=== PATIENT | male | born 1940 | race Caucasian/White ===

== ENCOUNTER 2021-11-21 06:25 | Outpatient (CLI) | payer MEDICARE, BC, SELFPAY | END 2021-11-21 06:26 | disposition home or self-care (01) | LOC: AMB 12-04 16:11 | PROVIDERS: Visit Provider Family Medicine | DX: M79.671 Pain in right foot (principal) | CPT/HCPCS: A0425; A0427 ==

== ENCOUNTER 2021-11-21 07:14 | Emergency (ER) | payer MEDICARE, BC, SELFPAY ==
[2021-11-21 07:16] VITALS: BP 148/68; PULSE 56; RESP 18; TEMP 35.9; O2SAT 97; BMI 32.4
--- NOTE | 2021-11-21 07:27 | CRLHL7_ITS ---
For Patients: As a result of the Century Cures Act, medical imaging exams and procedure reports are released immediately into your electronic medical record. You may view this report before your referring provider. If you have questions, please contact your health care provider. Indication: Right ankle pain and swelling Technique: Right ankle 3 views Comparison: None Findings: Vascular calcifications. Joint effusion. Small plantar calcaneal spur. Intact cortices. No acute fracture. Impression: Soft tissue swelling and joint effusion. No fracture. Dictated by Douglas Arce MD @ 11/21/2021 8:15:01 AM (Electronically Signed)
--- NOTE | 2021-11-21 07:28 | ED_ITS ---
HPI - General Adult General Time Seen by Provider: 07:28 <Tadeo Nicole MD - Last Filed: 11/21/21 07:30> Date Seen: 11/21/21 <Tadeo Nicole MD - Last Filed: 11/21/21 07:30> Chief complaint: Extremity Pain/Injury, Lower <Tadeo Nicole MD - Last Filed: 11/21/21 07:30> Stated complaint: Foot Pain <Tadeo Nicole MD - Last Filed: 11/21/21 07:30> Time Seen by Provider: 11/21/21 07:24 <Tadeo Nicole MD - Last Filed: 11/21/21 07:30> Source: patient <Tadeo Nicole MD - Last Filed: 11/21/21 07:30> Mode of arrival: EMS <Tadeo Nicole MD - Last Filed: 11/21/21 07:30> Limitations: no limitations <Tadeo Nicole MD - Last Filed: 11/21/21 07:30> History of Present Illness HPI narrative: 81-year-old male who comes in today with right ankle pain. Started yesterday and, no injury, progressively worse today. Was taking aspirin for this yesterday. Denies any fall or injury. Denies fever, chills, nausea, vomiting, diarrhea. Pain is worse with ambulation but constant otherwise. <Tadeo Nicole MD - Last Filed: 11/21/21 07:30> Related Data Home medications: Home Medications Medication Instructions Recorded Confirmed amlodipine 10 mg tablet mg 11/21/21 betamethasone dipropionate 0.05 % applic topical 11/21/21 topical cream calcipotriene topical 11/21/21 clobestasol 11/21/21 gemfibrozil 600 mg tablet mg 11/21/21 hydrocortisone valerate topical 11/21/21 ketoconazole 2 % topical cream applic topical 11/21/21 lisinopril 20 tab 11/21/21 mg-hydrochlorothiazide 25 mg tablet simvastatin 40 mg tablet mg 11/21/21 Previous Rx's Medication Instructions Recorded indomethacin 50 mg capsule 50 mg PO BID PRN #10 caps 11/21/21 prednisone 20 mg tablet 20 mg PO DIRECTED 8 days #18 11/21/21 tabs <Tadeo Nicole MD - Last Filed: 11/21/21 07:30> Allergies/adverse reactions: Allergies Allergy/AdvReac Type Severity Reaction Status Date / Time No Known Drug Allergies Allergy Verified 11/21/21 07:22 <Tadeo Nicole MD - Last Filed: 11/21/21 07:30> Review of Systems Status of ROS: Reports: 10 or more systems reviewed and unremarkable except as noted in History and below <Tadeo Nicole MD - Last Filed: 11/21/21 07:30> [facility] Medical History: Medical History (Updated 11/21/21 @ 08:27 by Verónica Gómez MD) Hypertension Psoriasis <Tadeo Nicole MD - Last Filed: 11/21/21 07:30> Surgical History: Surgical History (Updated 11/21/21 @ 07:27 by Patricia George RN) H/O shoulder replacement <Tadeo Nicole MD - Last Filed: 11/21/21 07:30> Social History: Social History Smoking Status: Former smoker How often do you have a drink containing alcohol: monthly or less AUDIT-C Alcohol total score: 1 Non-prescribed substance use: denies use <Tadeo Nicole MD - Last Filed: 11/21/21 07:30> Exam Narrative: Exam Narrative: General: Well-developed and well-nourished, no acute distress Head: Atraumatic and normocephalic Eyes: Pupils are equal reactive, extraocular motions intact, conjunctiva clear ENT: External nose and ears are normal, posterior pharynx without erythema or exudate Neck: No midline cervical tenderness, full spontaneous range of motion the neck, trachea midline, no adenopathy Heart: Regular rate and rhythm no murmurs or thrills Lungs: Clear to auscultation bilaterally without wheezes or crackles Abdomen: Soft, nontender, nondistended with active bowel sounds Musculoskeletal: Mild swelling and tenderness of the right lateral hindfoot in little bit medially. No definite joint effusion, pain with passive movement of the joint. Neurologic: Awake, alert, and oriented x3, no gross focal neurologic deficits, cranial nerves intact as tested Psych: Mood and affect are appropriate Skin: No rashes <Tadeo Nicole MD - Last Filed: 11/21/21 07:30> Const: Vital Signs, click to edit/add: Vital Signs - 24 hr 11/21/21 07:16 Temperature 96.7 F L Pulse Rate [Pulse Oximeter] 56 L Respiratory Rate 18 Blood Pressure [Le ft Upper Arm] 148/68 H Pulse Oximetry 97 Oxygen Delivery Me thod Room Air <Tadeo Nicole MD - Last Filed: 11/21/21 07:30> Vital Signs, click to edit/add: Vital Signs - 24 hr 11/21/21 07:16 Temperature 96.7 F L Pulse Rate [Pulse Oximeter] 56 L Respiratory Rate 18 Blood Pressure [Le ft Upper Arm] 148/68 H Pulse Oximetry 97 Oxygen Delivery Me thod Room Air <Verónica Gómez MD - Last Filed: 11/21/21 08:33> Course Course Hospital Course: Patient seen examined, prior records reviewed. Differential diagnosis includes but not limited to cellulitis, strain, sprain, gout, crystal arthropathy, septic arthritis. Patient presents with right ankle pain starting yesterday and worsening today. No fevers. On exam, the right ankle is exquisitely tender with mild swelling, no definite effusion. Labs and x-ray ordered. <Tadeo Nicole MD - Last Filed: 11/21/21 07:30> Reevaluation(s) Reevaluation #1: Sign out to oncoming provider <Tadeo Nicole MD - Last Filed: 11/21/21 07:30> Time: 08:00 <Tadeo Nicole MD - Last Filed: 11/21/21 07:30> Vital Signs Vital signs: Initial Vital Signs Temperature 96.7 F L 11/21/21 07:16 Temperature Source Temporal Artery Scan 11/21/21 07:16 Pulse Rate 56 L 11/21/21 07:16 Respiratory Rate 18 11/21/21 07:16 Blood Pressure 148/68 H 11/21/21 07:16 Blood Pressure Mean 94 11/21/21 07:16 Blood Pressure Position Supine 11/21/21 07:16 Pulse Oximetry 97 11/21/21 07:16 Oxygen Delivery Method 11/21/21 07:16 Vital Signs Temperature 96.7 F L 11/21/21 07:16 Pulse Rate 56 L 11/21/21 07:16 Respiratory Rate 18 11/21/21 07:16 Blood Pressure 148/68 H 11/21/21 07:16 Pulse Oximetry 97 11/21/21 07:16 Oxygen Delivery Method 11/21/21 07:16 Temperature 96.7 F L 11/21/21 07:16 Pulse Rate 56 L 11/21/21 07:16 Respiratory Rate 18 11/21/21 07:16 Blood Pressure 148/68 H 11/21/21 07:16 Pulse Oximetry 97 11/21/21 07:16 Oxygen Delivery Method 11/21/21 07:16 <Tadeo Nicole MD - Last Filed: 11/21/21 07:30> Initial Vital Signs Temperature 96.7 F L 11/21/21 07:16 Temperature Source Temporal Artery Scan 11/21/21 07:16 Pulse Rate 56 L 11/21/21 07:16 Respiratory Rate 18 11/21/21 07:16 Blood Pressure 148/68 H 11/21/21 07:16 Blood Pressure Mean 94 11/21/21 07:16 Blood Pressure Position Supine 11/21/21 07:16 Pulse Oximetry 97 11/21/21 07:16 Oxygen Delivery Method 11/21/21 07:16 Vital Signs Temperature 96.7 F L 11/21/21 07:16 Pulse Rate 56 L 11/21/21 07:16 Respiratory Rate 18 11/21/21 07:16 Blood Pressure 148/68 H 11/21/21 07:16 Pulse Oximetry 97 11/21/21 07:16 Oxygen Delivery Method 11/21/21 07:16 Temperature 96.7 F L 11/21/21 07:16 Pulse Rate 56 L 11/21/21 07:16 Respiratory Rate 18 11/21/21 07:16 Blood Pressure 148/68 H 11/21/21 07:16 Pulse Oximetry 97 11/21/21 07:16 Oxygen Delivery Method 11/21/21 07:16 <Verónica Gómez MD - Last Filed: 11/21/21 08:33> Medical Decision Making MDM Narrative Medical decision making narrative: Upon further conversation, patient tells me that he has had gout in the past and the other ankle and felt very similar to this. His labs showed elevated CRP otherwise labs are unremarkable. I did examine the joint myself, there is minimal erythema, no induration, he does have swelling and tenderness with movement of the joint. His x-ray does show a joint effusion. Findings appear to be more consistent with gout than with cellulitis at this point. I do not think he has a septic joint given the lack of a heat and erythema. At this point we will treat for gout. Patient is encouraged to follow up within the next 48 hours in certainly return to the ER if things are getting worse instead of better. Patient was agreeable had no other questions. <Verónica Gómez MD - Last Filed: 11/21/21 08:33> Medical Records Medical records reviewed: Yes I reviewed the patient's medical records <Tadeo Nicole MD - Last Filed: 11/21/21 07:30> Lab Data Lab results reviewed: Yes I reviewed the patient's lab results <Tadeo Nicole MD - Last Filed: 11/21/21 07:30> Yes I reviewed the patient's lab results <Verónica Gómez MD - Last Filed: 11/21/21 08:33> Labs: Lab Results 11/21/21 11/21/21 Range/Units 07:35 07:35 WBC 11.57 H (4.50-11.00) K/uL RBC 4.27 L (4.30-5.90) m/uL Hgb 13.3 L (13.5-17.5) gm/dL Hct 39.3 (37.0-53.0) % MCV 92 (80-100) fL MCH 31 (26-34) pg MCHC 34 (32-36) gm/dL RDW Coeff of Judy 13.1 (11.5-15.5) % Plt Count 272 (140-440) K/uL Neut % (Auto) 80.8 H (42.0-72.0) % Lymph % (Auto) 6.8 L (20-44) % [place] % (Auto) 9.4 (0.0-11.0) % Eos % (Auto) 2.4 (0.0-7.0) % Baso % (Auto) 0.4 (0.0-3.0) % Neut # (Auto) 9.30 H (1.7-7.0) K/uL Lymph # (Auto) 0.80 L (0.90-2.90) K/uL [place] # (Auto) 1.10 H (0.00-0.90) K/UL Eos # (Auto) 0.30 (0.00-0.50) K/uL Baso # (Auto) 0.00 (0.00-0.30) K/uL Abs Immat Gran (auto) 0.02 (0.00-0.30) K/uL Sodium 139 (135-149) mmol/L Potassium 3.9 (3.6-5.1) mmol/L Chloride 105 (96-114) mmol/L Carbon Dioxide 24 (20-32) mmol/L BUN 28 (7-30) mg/dL Creatinine 1.3 (0.5-1.5) mg/dL Estimated Creat Clear 40.08 Estimated GFR 56 ml/min Glucose 121 H (60-115) mg/dL Calcium 9.2 (8.4-10.6) mg/dL C-Reactive Protein 3.1 H (0.5-1.0) mg/dL <Tadeo Nicole MD - Last Filed: 11/21/21 07:30> Lab Results 11/21/21 11/21/21 Range/Units 07:35 07:35 WBC 11.57 H (4.50-11.00) K/uL RBC 4.27 L (4.30-5.90) m/uL Hgb 13.3 L (13.5-17.5) gm/dL Hct 39.3 (37.0-53.0) % MCV 92 (80-100) fL MCH 31 (26-34) pg MCHC 34 (32-36) gm/dL RDW Coeff of Judy 13.1 (11.5-15.5) % Plt Count 272 (140-440) K/uL Neut % (Auto) 80.8 H (42.0-72.0) % Lymph % (Auto) 6.8 L (20-44) % [place] % (Auto) 9.4 (0.0-11.0) % Eos % (Auto) 2.4 (0.0-7.0) % Baso % (Auto) 0.4 (0.0-3.0) % Neut # (Auto) 9.30 H (1.7-7.0) K/uL Lymph # (Auto) 0.80 L (0.90-2.90) K/uL [place] # (Auto) 1.10 H (0.00-0.90) K/UL Eos # (Auto) 0.30 (0.00-0.50) K/uL Baso # (Auto) 0.00 (0.00-0.30) K/uL Abs Immat Gran (auto) 0.02 (0.00-0.30) K/uL Sodium 139 (135-149) mmol/L Potassium 3.9 (3.6-5.1) mmol/L Chloride 105 (96-114) mmol/L Carbon Dioxide 24 (20-32) mmol/L BUN 28 (7-30) mg/dL Creatinine 1.3 (0.5-1.5) mg/dL Estimated Creat Clear 40.08 Estimated GFR 56 ml/min Glucose 121 H (60-115) mg/dL Calcium 9.2 (8.4-10.6) mg/dL C-Reactive Protein 3.1 H (0.5-1.0) mg/dL <Verónica Gómez MD - Last Filed: 11/21/21 08:33> Imaging Data Ankle x-ray: Radiologist's impression: Findings: Vascular calcifications. Joint effusion. Small plantar calcaneal spur. Intact cortices. No acute fracture. Impression: Soft tissue swelling and joint effusion. No fracture. <Verónica Gómez MD - Last Filed: 11/21/21 08:33> Discharge Plan Discharge Clinical Impression: Gout <Tadeo Nicole MD - Last Filed: 11/21/21 07:30> Patient Disposition: Home, Self-Care <Tadeo Nicole MD - Last Filed: 11/21/21 07:30> Condition: Stable <Tadeo Nicole MD - Last Filed: 11/21/21 07:30> Additional Instructions: Take the steroid (prednisone) as instructed. Indomethacin is used for pain management, use only as needed for there is an increased risk of bleeding from your stomach with prolonged use of this medication. You can also use Tylenol for pain management. Elevate the leg as much as you can throughout the day. Follow-up with your primary care provider in the next 48 hours. Return to the ER if you are getting worse instead of better despite treatment. Return to the ER if you develop fever, vomiting or weakness. <Tadeo Nicole MD - Last Filed: 11/21/21 07:30> Prescriptions: New prednisone 20 mg tablet 20 mg PO DIRECTED 8 Days Qty: 18 0RF Rx Instructions: Take 3 tablets on days 1 to 3, take 2 tablets on days 4-6, take 1 tablet on days 6-8. indomethacin 50 mg capsule 50 mg PO BID PRNQty: 10 0RF Rx Instructions: administer with food or milk No Action simvastatin 40 mg tablet amlodipine 10 mg tablet gemfibrozil 600 mg tablet betamethasone dipropionate 0.05 % cream TOPICAL Label Comments: APPLY TOPICALLY TO THE AFFECTED AREA TWICE DAILY lisinopril-hydrochlorothiazide 20-25 mg tablet Label Comments: TAKE 1 TABLET BY MOUTH TWICE DAILY ketoconazole 2 % cream TOPICAL calcipotriene topical clobestasol hydrocortisone valerate topical <Tadeo Nicole MD - Last Filed: 11/21/21 07:30> Stand Alone [facility] <Tadeo Nicole MD - Last Filed: 11/21/21 07:30>
[2021-11-21 07:45] LABS: Basophils Percent Auto 0.4 % (0.0-3.0); Eosinophils Percent Auto 2.4 % (0.0-7.0); Hematocrit 39.3 % (37.0-53.0); Hemoglobin* 13.3 gm/dL (13.5-17.5); Immature Granulocytes Abs Auto 0.02 K/uL (0.00-0.30); Lymphocytes Percent Auto 6.8 % (20-44); Mean Corpuscular HGB Conc 34 gm/dL (32-36); Mean Corpuscular Hemoglobin 31 pg (26-34); Mean Corpuscular Volume 92 fL (80-100); Monocytes Percent Auto 9.4 % (0.0-11.0); Neutrophils Percent Auto 80.8 % (42.0-72.0); Platelet Count* 272 K/uL (140-440); RDW Coefficient of Variation % 13.1 % (11.5-15.5); Red Blood Count 4.27 m/uL (4.30-5.90); White Blood Count* 11.57 K/uL (4.50-11.00)
[2021-11-21 08:00] LABS: Chloride* 105 mmol/L (96-114); Slide Review Reflex No; Sodium* 139 mmol/L (135-149)
[2021-11-21 08:01] LABS: Potassium* 3.9 mmol/L (3.6-5.1)
[2021-11-21 08:03] LABS: Creatinine* 1.3 mg/dL (0.5-1.5); Est. Creatinine Clearance* 40.08; Estimated Glomerular Filt Rate 56 ml/min
[2021-11-21 08:04] LABS: Blood Urea Nitrogen* 28 mg/dL (7-30); Calcium* 9.2 mg/dL (8.4-10.6); Carbon Dioxide* 24 mmol/L (20-32); Glucose* 121 mg/dL (60-115)
[2021-11-21 08:07] LABS: C Reactive Protein* 3.1 mg/dL (0.5-1.0)
[2021-11-21] MEDS: KETOROLAC 30 MG/ML inj IVP (08:42)
== END 2021-11-21 09:03 | disposition home or self-care (01) ==
PROVIDERS: Family Medicine; Emergency Provider Family Medicine
DX: M10.9 Gout, unspecified (principal)
CPT/HCPCS: 36415; 73610; 80048; 85025; 86140; 96374; 99284; J1885